=== PATIENT | male | born 1935 | race Two or more races ===

== ENCOUNTER 2017-02-28 18:49 | Inpatient (IN) | payer MEDICARE, OTHER ==
[2017-02-28] VITALS (7 sets, daily range): BP systolic 99–121; BP diastolic 13–70
[~2017-02-28] VITALS: Ht 177.8 cm; Wt 63.2 kg
--- NOTE | 2017-02-28 18:52 | NUR ---
BIBRA 89 FROM HOME C/O SOB, SPO2=84% ON RA PLACED ON NR AVP9=722% WATER SYSTEMS ENGINEER. SKIN TEAR NOTED ON RFA WATER SYSTEMS ENGINEER. SKIN DISCOLORATION NOTED ON UPPER AND LOWER EXTREMITIES. PLACED ON SIMPLE MASK UPON ARRIVAL, SPO2=95%. SKIN IS WARM AND DRY. AFEBRILE. DR MENDOZA AT BS FOR EVAL. STARTED IVHL RAC 18G.
[2017-02-28 19:08] LABS: BASOPHILS # (AUTO) 0.4 /CMM (0.0-0.2); BASOPHILS % (AUTO) 2.3 % (0.0-2.0); HEMATOCRIT 44 % (39-51); HEMOGLOBIN 13.7 g/dL (13.5-17.5); LYMPHOCYTES # (AUTO) 0.8 /CMM (0.8-4.8); LYMPHOCYTES % (AUTO) 4.2 % (20.0-44.0); MEAN CORPUSCULAR HEMOGLOBIN 27 PG (26.0-33.0); MEAN CORPUSCULAR HGB CONC 32 g/dl (31.0-36.0); MEAN CORPUSCULAR VOLUME 87 fL (80-96); MONOCYTES # (AUTO) 0.7 /CMM (0.1-1.30); MONOCYTES % (AUTO) 3.6 % (2.0-12.0); NEUTROPHILS # (AUTO) 17.3 /CMM (1.8-8.9); NEUTROPHILS % (AUTO) 89.9 % (43.0-81.0); RDW COEFFICIENT OF VARIATION 16.1 (11.5-15.0); RED BLOOD CELL COUNT(AUTO) 4.99 MIL/uL (4.5-6.0); WHITE BLOOD COUNT (AUTO) 19.2 K/uL (4.3-11.0)
[2017-02-28] MEDS ORDERED: DILTIAZEM HCL 25 MG IV ONE ×3 (19:08→20:17)
--- NOTE | 2017-02-28 19:09 | NUR ---
CALLED RT FOR ABG
[2017-02-28 19:15] LABS: INR 1.21 (0.87-1.13); PROTHROMBIN TIME 12.7 SECS (9.5-12.7)
[2017-02-28 19:18] LABS: ALANINE AMINOTRANSFERASE 159 U/L (12-78); ALBUMIN 1.9 g/dL (3.4-5.0); ALKALINE PHOSPHATASE 161 U/L (46-116); ASPARTATE AMINOTRANSFERASE 79 U/L (15-37); BILIRUBIN,DIRECT 0.3 mg/dL (0.0-0.2); BILIRUBIN,TOTAL 0.7 mg/dL (0.2-1.0); CALCIUM, SERUM 8.4 mg/dL (8.5-10.1); CARBON DIOXIDE 23 mmol/L (21-32); CHLORIDE 113 mmol/L (98-107); CREATININE 1.4 mg/dL (0.6-1.3); GLUCOSE 126 mg/dL (74-106); POTASSIUM 4.2 mmol/L (3.5-5.1); SODIUM SERUM 146 mmol/L (136-145); TOTAL PROTEIN, SERUM 6.5 g/dL (6.4-8.2); UREA NITROGEN, BLOOD 32 mg/dL (7-18)
--- NOTE | 2017-02-28 19:19 | NUR ---
MERLY SHERMAN; DAUGHTER; CELL [phone]
[2017-02-28 19:20] LABS: TROPONIN I 0.203 ng/mL (0.00-0.056)
--- NOTE | 2017-02-28 19:25 | NUR ---
RT at bed side for arterial blood gas
[2017-02-28] MEDS ORDERED: IV NS 0.9% 1,000 ML BAG IV ONE (19:30)
[2017-02-28] MEDS ORDERED: VANCOMYCIN 1 GM in IV D5W 250 ML IV ONE (19:30)
[2017-02-28] MEDS ORDERED: DILTIAZEM HCL 50 MG IV IV ONE ×4 (19:30→21:00)
[2017-02-28] MEDS ORDERED: CEFEPIME 1 GM in IV D5W 50 ML IV ONE (19:30)
[2017-02-28 19:32] LABS: ABG BASE EXCESS -2.9 mmol/L; ABG OXYGEN SATURATION 93.5 % (92.0-98.5); ABG PCO2 27.6 mmHg (35.0-45.0); ABG PH 7.465 (7.350-7.450); ABG PO2 69.6 mmHg (75.0-100.0); ABG TOTAL HEMOGLOBIN 13.9 G/dL (13.5-18.0); AaDO2 219.9 mmHg; COHb 1.2 % (0.5-1.5); MetHb 0.5 % (0.0-1.5); O2Hb 91.9 % (94.0-97.0); SITE, ABG Right Radial; VENT MODE, BG Simple Mask
[2017-02-28] MEDS ORDERED: SECONDARY IV SET 1 EA INFUS.SET MC ONE ×2 (19:34→22:09)
[2017-02-28] MEDS ORDERED: IV SET PRIMARY 1 EA INFUS.SET MC ONE (19:34)
[2017-02-28] MEDS ORDERED: IV NS 0.9% 2,000 ML ONE (19:34)
[2017-02-28] MEDS ORDERED: ASPIRIN 300 MG/SUPP.RECT RC ONE ×2 (19:34→20:00)
[2017-02-28 19:35] LABS: APPEARANCE,URINE Clear (CLEAR); BILIRUBIN,URINE Negative (NEGATIVE); BLOOD, URINE Trace-lysed Ery/uL (NEGATIVE); COLOR,URINE Yellow (YELLOW); KETONES,URINE Negative (NEGATIVE); LEUKOCYTE ESTERASE ,URINE Negative (NEGATIVE); NITRITE, URINE Negative (NEGATIVE); PH,URINE 5.5 (5.0-8.0); PROTEIN,URINE Trace mg/dl (NEGATIVE); UGLUCOSE Negative (NEGATIVE); UROBILINOGEN,URINE 0.2 EU/dL (0.2)
[2017-02-28] MEDS ORDERED: IV SET PRIMARY PUMP SET 1 EA INFUS.SET MC ONE ×5 (19:37→22:08)
[2017-02-28 19:40] LABS: LACTIC ACID 2.3 mmol/L (0.4-2.0)
--- NOTE | 2017-02-28 19:45 | NUR ---
SAMANTHA MERCEDESD, AMBER SOFIA NP [employer] BUS DRIVER
[2017-02-28 19:54] LABS: ADD URINE CULTURE NO; BACTERIA,URINE None seen /HPF (None Seen); SQUAMOUS EPITHELIAL CELL,UR Few /HPF (None Seen); WBC,URINE 0-2 /HPF (0-3)
--- NOTE | 2017-02-28 19:57 | NUR ---
PT RESTING IN ER BED, NAD NOTED, PT HR IS IN THE UPPER 120'S, MD MENDOZA NOTIFIED
--- NOTE | 2017-02-28 20:02 | NUR ---
CALLED NURSING SUP. FOR ICU BED
[2017-02-28 20:13] LABS: BAND % (MANUAL) 1 % (0.0-5.0); BASOPHILS % (MANUAL) 0 % (0.0-2.0); EOSINOPHILS % (MANUAL) 0 % (0-4); LYMPHOCYTES % (MANUAL) 2 % (16-48); MONOCYTES % (MANUAL) 3 % (0-11.0); NEUTROPHILS % (MANUAL) 94 (42-76); PLATELET ESTIMATE ADEQUATE
[2017-02-28 20:14] LABS: PLATELET COUNT (AUTO) 140 /CMM (150-450)
[2017-02-28] MEDS ORDERED: IV 1/2NS 1000 ML 1,000 ML IV PRN (20:27)
[2017-02-28] MEDS ORDERED: MAGNESIUM HYDROXIDE 30 ML UDC PO PRN (20:30)
[2017-02-28] MEDS ORDERED: ACETAMINOPHEN 325 MG TABLET PO PRN (20:30)
[2017-02-28] MEDS ORDERED: MAG HYDROX/AL HYDROX/SIMETH 30 ML UDC PO PRN (20:30)
[2017-02-28] MEDS ORDERED: Z GUARD REMEDY 2 OZ OINT TP PRN (20:30)
[2017-02-28] MEDS ORDERED: ONDANSETRON HCL/PF 4 MG/2 ML VIAL IVP PRN (20:30)
[2017-02-28] MEDS: DILTIAZEM HCL IV 125 MG in IV D5W 100 ML IV PRN ×2 (20:45→22:31)
--- NOTE | 2017-02-28 20:50 | NUR ---
STARED RAMONA LOPEZ ORDERED
[2017-02-28] MEDS ORDERED: LEVOFLOXACIN 750 MG /D5W 150ML 750 MG in PREMIX 1 EA IV SCH (21:00)
--- NOTE | 2017-02-28 21:02 | NUR ---
REPORT GIVEN TO BRAXTON MCCARTY FOR JOSH
--- NOTE | 2017-02-28 21:30 | NUR ---
ROAD CLEANER :CRITICAL LAB VALUE OF LACTIC ACID 2.6 RECEIVED . PRIMARY NURSE NOTIFIED. PT ADMITTED FOR SEPSIS AND BEING TREATED FOR SEPSIS.
--- NOTE | 2017-02-28 22:00 | NUR ---
STICK INSERTER;' ADMISSION NOTE; RECEIVED PT FROM ER AT 2130, PT IS AAO X 1, CONFUSED, ON FACE MASK 6 L SATURATING 95%, SHALLOW BREATHING WITH EXERTION.ON CARDIZEM DRIP AT 11 MG/HR, UNCONTROLLED AFIB ON MONITOR. ALL ADMISSION ASSESSMENT DONE. MULTIPLE SKIN ISSUE NOTED, PICTURE TAKEN, SEE DOCUMENTATION ON FLOW SHEET. WOUND CARE CONSULT ORDERED. PER ER NURSE PT CODE STATUS ID DNR/DNI. SPOKE WITH PT'S DAUGHTER ON PHONE WANTS TO TREAT EVERYTHING BUT NOT IN AGGRESSIVE WAY.DAUGHTER HAS ADVANCE DIRECTIVE , WILL BRING IN MORNING. IV ACCESS LAC # 20, RAC #18 RUNNING 1/ NS AT 75 ML/HR. BP STABLE. ONGOING MONITORING...
[2017-02-28] MEDS ORDERED: IV 1/2NS 1000 ML 1,000 ML IV ONE (22:08)
[2017-02-28] MEDS ORDERED: MEROPENEM 1 G VIAL IV ONE (22:09)
[2017-02-28] MEDS ORDERED: LEVOFLOXACIN 750 MG /D5W 150ML 150 ML IV ONE (22:09)
[2017-02-28] MEDS ORDERED: IV NS 0.9% 100 ML IV ONE (22:18)
[2017-02-28] MEDS: MEROPENEM 1 G in IV NS 0.9% 100 ML IV SCH (22:22)
[2017-03-01] VITALS (64 sets, daily range): BP systolic 84–114; BP diastolic 48–77
[2017-03-01] MEDS ORDERED: DILTIAZEM HCL IV 125 MG in IV D5W 100 ML IV PRN (02:00)
[2017-03-01] MEDS ORDERED: IV NS 0.9% 100 ML IV ONE (04:41)
[2017-03-01] MEDS: MEROPENEM 1 G in IV NS 0.9% 100 ML IV SCH ×2 (04:48→17:20)
--- NOTE | 2017-03-01 04:56 | NUR ---
LABORATORY SAMPLE CARRIER: PT CONTINUE ON CARDIZEM DRIP TITRATED UP TO 13 MG/HR, HEART RATE STILL 120 AFIB. ORDERS WAS CLARIFIED WITH NEGRETTE ACNP WANTS TO KEEP CONTINUE DRIP UNTIL SEEN BY CHAIR LIFT OPERATOR. COMPLETE BED BATH GIVEN. MULTIPLE SKIN ISSUE , WOUND ACRE CONSULT ORDERED.
[2017-03-01 05:02] LABS: EOSINOPHILS # (AUTO) 0.1 /CMM (0.0-0.7); EOSINOPHILS % (AUTO) 0.4 % (0.0-6.0); HEMATOCRIT 38 % (39-51); HEMOGLOBIN 11.9 g/dL (13.5-17.5); LYMPHOCYTES # (AUTO) 0.7 /CMM (0.8-4.8); LYMPHOCYTES % (AUTO) 3.8 % (20.0-44.0); MEAN CORPUSCULAR HEMOGLOBIN 28 PG (26.0-33.0); MEAN CORPUSCULAR HGB CONC 32 g/dl (31.0-36.0); MEAN CORPUSCULAR VOLUME 87 fL (80-96); MONOCYTES # (AUTO) 0.2 /CMM (0.1-1.30); MONOCYTES % (AUTO) 1.2 % (2.0-12.0); NEUTROPHILS # (AUTO) 17.8 /CMM (1.8-8.9); NEUTROPHILS % (AUTO) 94.6 % (43.0-81.0); PLATELET COUNT (AUTO) 133 /CMM (150-450); RDW COEFFICIENT OF VARIATION 17.3 (11.5-15.0); RED BLOOD CELL COUNT(AUTO) 4.35 MIL/uL (4.5-6.0); WHITE BLOOD COUNT (AUTO) 18.8 K/uL (4.3-11.0)
[2017-03-01 05:18] LABS: FREE T4 (FREE THYROXINE) 0.85 ng/dL (0.76-1.46)
[2017-03-01 05:20] LABS: CALCIUM, SERUM 7.4 mg/dL (8.5-10.1); CREATININE 1.1 mg/dL (0.6-1.3); MAGNESIUM 1.7 mg/dL (1.8-2.4); PHOSPHORUS 2.4 mg/dL (2.5-4.9); POTASSIUM 3.8 mmol/L (3.5-5.1)
[2017-03-01 05:37] LABS: ANISOCYTOSIS 1+; BAND % (MANUAL) 1 % (0.0-5.0); LYMPHOCYTES % (MANUAL) 1 % (16-48); MONOCYTES % (MANUAL) 6 % (0-11.0); NEUTROPHILS % (MANUAL) 92 (42-76); PLATELET ESTIMATE GIANT PLATELET SEEN
[2017-03-01] MEDS ORDERED: FEE PK DOSING 1 MIN EA MC ONE (07:52)
[2017-03-01] MEDS ORDERED: IV SET PRIMARY PUMP SET 1 EA INFUS.SET MC ONE ×3 (08:11→18:10)
[2017-03-01] MEDS ORDERED: SECONDARY IV SET 1 EA INFUS.SET MC ONE ×2 (08:11→08:55)
[2017-03-01] MEDS: PANTOPRAZOLE 40 MG VIAL IV SCH (08:18)
[2017-03-01] MEDS: Magnesium 1GM/D5W 100ML PREMIX 100 ML IV SCH ×2 (08:18→09:13)
[2017-03-01] MEDS ORDERED: AMIODARONE 900 MG in IV D5W 500 ML IV PRN (08:30)
[2017-03-01] MEDS ORDERED: AMIODARONE 150 MG in IV D5W 100 ML IV ONE (08:30)
--- NOTE | 2017-03-01 08:37 | NUR ---
BANQUET CHEF NOTE 0720: Received patient awake, alert to name only. No respiratory distress ntoed at this time, 93% O2 sat on 6LPM of O2 via mask. No c/o discomfort at this time. With PIVs intact. On IVF infusing as ordered and Cardizem drip @13mg, still on uncontrolled AFib at this time, 120's. SBP >90's at this time. Noted patient with rales during auscultation, noted with productive cough. Kept HOB elevated. 0815: S/E by Dr. Horowitz, still on uncontrolled Afib and SBP 90's, with order to DC Cardizem and change to Amio drip and DC IVF. Will F/U with daughter for the list of home meds.
[2017-03-01] MEDS: VANCOMYCIN 0.75 GM in IV D5W 250 ML IV SCH ×2 (08:59→20:50)
[2017-03-01 09:24] LABS: ABG BASE EXCESS -5.1 mmol/L; ABG OXYGEN SATURATION 94.2 % (92.0-98.5); ABG PCO2 31.7 mmHg (35.0-45.0); ABG PH 7.392 (7.350-7.450); ABG PO2 77.1 mmHg (75.0-100.0); ABG TOTAL HEMOGLOBIN 12.3 G/dL (13.5-18.0); AaDO2 243.7 mmHg; COHb 0.7 % (0.5-1.5); MetHb 1.3 % (0.0-1.5); O2Hb 92.3 % (94.0-97.0); SITE, ABG Right Radial; VENT MODE, BG 6L SIMPLE MASK
[2017-03-01] MEDS ORDERED: AMIODARONE 900 MG in IV D5W 482 ML IV PRN (10:00)
[2017-03-01] MEDS: IPRATROPIUM NEB FS 0.5 MG/2.5 ML AMPUL.NEB NEB SCH ×2 (12:05→19:49)
--- NOTE | 2017-03-01 12:44 | NUR ---
TOMBSTONE ERECTOR HELPER NOTE 0930: Started patient on Amio drip, still noted on uncontrolled Afib up to 120's. 1130: S/E by Dr. Cordova, made aware patient is NPO and Dr. Horowitz ordered to DC IVF, will continue POC for now. MD ordered to place NGT for now and Mckinley catheter. Patient tolerated procedures, with left NGT, clamped and Mckinley cath fr16, noted with urine with lots of sediments.Placed patient on KCI mattress. 1230: Patient on 6LPM of O2 via NC @ this time, tolerated.
[2017-03-01] MEDS ORDERED: ACET325T53 PO (13:51)
[2017-03-01] MEDS ORDERED: MUPI15CR TP (13:53)
[2017-03-01] MEDS ORDERED: [UNRECOGNIZED DRUG - CODE] TP (13:53)
[2017-03-01] MEDS ORDERED: IPRA0.2S49 NEB (14:02)
[2017-03-01] MEDS ORDERED: ASPI81TA2 PO (14:02)
[2017-03-01] MEDS ORDERED: SERT50TA12 PO (14:02)
[2017-03-01] MEDS ORDERED: LEVO112T5 PO (14:02)
[2017-03-01] MEDS ORDERED: METO50TA3 PO (14:02)
[2017-03-01] MEDS ORDERED: MENT113O MC (14:02)
[2017-03-01] MEDS ORDERED: DOXY100C2 PO (14:02)
[2017-03-01] MEDS ORDERED: PRED5TAB48 PO (14:02)
[2017-03-01] MEDS ORDERED: POTASSIUM PHOSPHATE MM 7.5 MMOL in IV D5W 100 ML IV SCH (18:00)
[2017-03-01] MEDS: FIBERSOURCE HN 1,000 ML BOTTLE GT PRN (22:12)
[2017-03-02] VITALS (34 sets, daily range): BP systolic 94–127; BP diastolic 57–87
[2017-03-02] MEDS: IPRATROPIUM NEB FS 0.5 MG/2.5 ML AMPUL.NEB NEB SCH ×4 (01:40→20:03)
[2017-03-02 04:57] LABS: BASOPHILS % (AUTO) 0.1 % (0.0-2.0); EOSINOPHILS # (AUTO) 0.2 /CMM (0.0-0.7); EOSINOPHILS % (AUTO) 1.3 % (0.0-6.0); HEMATOCRIT 38 % (39-51); HEMOGLOBIN 12.3 g/dL (13.5-17.5); LYMPHOCYTES # (AUTO) 0.7 /CMM (0.8-4.8); LYMPHOCYTES % (AUTO) 4.1 % (20.0-44.0); MEAN CORPUSCULAR HEMOGLOBIN 28 PG (26.0-33.0); MEAN CORPUSCULAR HGB CONC 32 g/dl (31.0-36.0); MEAN CORPUSCULAR VOLUME 87 fL (80-96); MONOCYTES # (AUTO) 0.5 /CMM (0.1-1.30); MONOCYTES % (AUTO) 3.1 % (2.0-12.0); NEUTROPHILS # (AUTO) 15.2 /CMM (1.8-8.9); NEUTROPHILS % (AUTO) 91.4 % (43.0-81.0); PLATELET COUNT (AUTO) 102 /CMM (150-450); WHITE BLOOD COUNT (AUTO) 16.6 K/uL (4.3-11.0)
[2017-03-02] MEDS: MEROPENEM 1 G in IV NS 0.9% 100 ML IV SCH ×2 (05:04→16:57)
[2017-03-02 05:19] LABS: ALBUMIN 1.6 g/dL (3.4-5.0); BILIRUBIN,TOTAL 0.7 mg/dL (0.2-1.0); CALCIUM, SERUM 7.4 mg/dL (8.5-10.1); CREATININE 1.1 mg/dL (0.6-1.3); MAGNESIUM 2.2 mg/dL (1.8-2.4); POTASSIUM 3.8 mmol/L (3.5-5.1); TOTAL PROTEIN, SERUM 5.4 g/dL (6.4-8.2)
[2017-03-02 05:30] LABS: TROPONIN I 1.363 ng/mL (0.00-0.056)
--- NOTE | 2017-03-02 06:00 | NUR ---
UNDERGROUND UTILITY LOCATOR - REC'D PT. LAST PM ON AMIODARONE GTT. AT 0.5MG/HR (16.6 CC) VIA CHOPRA PUMP. PT'S DAUGHTER-MERLY PHONED LAST NIGHT FOR STATUS UPDATE. GIVEN. SHE IS VERY INVOLVED IN HER CARE. PT. IS VERY CONGESTED & HAS REC'D NASAL SXING W/ARREDONDO/BLOOD TINGED SX'S EXPELLED. DOPPLER PULSES ARE THE ONLY WAY TO AUSC.PEDALS. AFEBRILE. HEART MONITOR SHOWS UNCONT. AFIB/LOW 100'S-120'S. SBP'S = 90-120'S. PT.IS ON O2/4L/NC. MULTIPLE WOUND CARE ADM. DURING BEDBATH. DOPPLER PEDAL PULSES ARE THE ONLY WAY TO ASSESS CIRCULATION. NO POST.TIB'S OR DORSAL PEDAL PULSES ARE HEARD. PULSE IS AUDIBLE AT THE TOP OF (BILAT.) FOOT. TWO PIV'S ARE NOTED. SCHAFFER CATH TO GRAVITY W/MIN.UOP FOR 12HR. SHIFT 365CC/NOC'S. HOB UP AT 30 DEGREES ALWAYS. CONT.POC.
--- NOTE | 2017-03-02 08:18 | NUR ---
WOUND CARE CONSULT PATIENT SEEN AND SKIN INTEGRTY ASSESSMENT DONE. PLEASE SEE TAWER ASSESSMENT IN PCS FOR TODAY ALONG WITH ALL RECOMMENDATIONS. WOUND CARE WILL DEFER TREATMENT TO THE BILATERAL FEET ULCERATIONS TO PODIATRY AT THIS TIME. PODIATRY HAS BEEN NOTIFIED BY PMD. PATIENT WITH CURRENT MAISHA AT 12. 1ST STEP LOW AIRLOSS MATTRESS IN PLACE FOR SKIN MANAGEMENT, RECOMMEND TURNING SCHED Q 2 HOURS PATIENT CONDITION PERMITS AND BILATERAL HEEL FLOATING. ALL TREATMENT PLANS DISCUSSED WITH MD AND MD IN AGREEMENT. ALL DISCUSSED WITH NURSING AT THE BEDSIDE. CONTINUE ALL PREVENTION MEASURES PER CURRENT PLAN OF CARE. PATIENT WITH MULTIPLE CO-MORBIDITIES AT THIS TIME. TAWER UNABLE TO PALPATE BILATERAL PEDAL PULSES AT THIS TIME AND FEET ARE COOL TO TOUCH. ARTERIAL STUDIES NOTED. Addendum: 03/02/17 at 0826 by QUENTIN STANTON WNDNU Amended: Links added.
[2017-03-02] MEDS: VANCOMYCIN 0.75 GM in IV D5W 250 ML IV SCH ×2 (09:00→20:38)
--- NOTE | 2017-03-02 09:10 | NUR ---
DEEP SUCTIONED THE PT. MODERATE AMOUNT OF PINK SPUTUM OBTAINED. PT TOLERATED THE PROCEDURE WELL AND THE PATIENT'S BREATH SOUNDS ARE MORE CLEAR.
[2017-03-02] MEDS: PANTOPRAZOLE 40 MG VIAL IV SCH (09:14)
[2017-03-02] MEDS: NEOMY SULF/BACITRAC ZN/POLY 15 GM TUBE TP SCH (09:14)
--- NOTE | 2017-03-02 10:34 | NUR ---
DR. HOFFMAN ON THE UNIT ORDERS FOR STAT CT WITH RUNOFF. PT HAS TO BE NPO FOR FOUR HOURS PER RAIDOLOGY, IS AWARE AND HE STATES KEEP HIM NPO FOR 4 HOURS AND DO THE PROCEDURE TODAY 1430, RESTART TF AFTER.
[2017-03-02] MEDS: DIGOXIN INJ 0.5 MG/2 ML AMPUL IV SCH ×3 (11:19→23:45)
[2017-03-02] MEDS: ENOXAPARIN SODIUM 40 MG/0.4 ML DISP.SYRIN SQ SCH (11:23)
--- NOTE | 2017-03-02 11:28 | NUR ---
CALLED PT'S DAUGHTER MERLY LEFT A MESSAGE TO CALL THE UNIT BACK. WILL OBTAIN CONSENT FOR CTA ABDOMINAL AORTA WITH CONTRAST. PER DR. HOFFMAN'S ORDERS. Addendum: 03/02/17 at 1533 by NISHANT BURKETT RN CONSENT OBTAINED. T.O. CONSENT VERIFIED WITH CHARGE NURSE OVER THE PHONE.
[2017-03-02] MEDS ORDERED: IOHEXOL-350 100 ML VIAL IV ONE (14:29)
[2017-03-02] MEDS ORDERED: IV NS 0.9% 250 ML IV ONE (14:29)
[2017-03-02] MEDS ORDERED: CT SWABBABLE VALVE TRANS SET 1 EA INFUS.SET MC ONE (14:30)
--- NOTE | 2017-03-02 15:34 | NUR ---
PT BACK FROM CT. SHORT OF BREATH SPO2 88% PLACED ON O2 MASK WITH SPO2 SATURATION RISING UP TO 99%. WILL TITRATE OFF PER PT TOLERATION. Addendum: 03/02/17 at 1618 by NISHANT BURKETT RN RIGHT AC 18G INFILTRATED AFTER CT WITH CONTRAST STUDY. DC AND ELEVATED WITH WARM COMPRESS. ATTEMPTED TO START IV, BUT UNSUCCESSFUL, MIDLINE ORDER OBTAINED AND IV NURSE NOTIFIED WILL BY IN BY 5PM TODAY.
--- NOTE | 2017-03-02 18:39 | NUR ---
RT IN FOR DEEP SUCTIONING OF THE PT AGAIN. MODERATE AMOUNT OF SECRETIONS OBTAINED, PT TOLERATED PROCEDURE WELL AND VOCALLY SOUNDS MORE CLEAR.
[2017-03-02] MEDS ORDERED: LEVOFLOXACIN 750 MG /D5W 150ML 750 MG in PREMIX 1 EA IV SCH (21:00)
[2017-03-03] VITALS (30 sets, daily range): BP systolic 96–149; BP diastolic 45–86
[2017-03-03] MEDS: IPRATROPIUM NEB FS 0.5 MG/2.5 ML AMPUL.NEB NEB SCH ×4 (01:27→19:43)
[2017-03-03] MEDS: MEROPENEM 1 G in IV NS 0.9% 100 ML IV SCH ×2 (04:25→16:23)
[2017-03-03 04:50] LABS: BASOPHILS % (AUTO) 0.1 % (0.0-2.0); EOSINOPHILS # (AUTO) 0.2 /CMM (0.0-0.7); EOSINOPHILS % (AUTO) 1.2 % (0.0-6.0); HEMATOCRIT 44 % (39-51); HEMOGLOBIN 13.9 g/dL (13.5-17.5); LYMPHOCYTES # (AUTO) 0.7 /CMM (0.8-4.8); LYMPHOCYTES % (AUTO) 4.1 % (20.0-44.0); MEAN CORPUSCULAR HEMOGLOBIN 28 PG (26.0-33.0); MEAN CORPUSCULAR HGB CONC 32 g/dl (31.0-36.0); MEAN CORPUSCULAR VOLUME 87 fL (80-96); MONOCYTES # (AUTO) 0.5 /CMM (0.1-1.30); MONOCYTES % (AUTO) 2.8 % (2.0-12.0); NEUTROPHILS # (AUTO) 15.2 /CMM (1.8-8.9); NEUTROPHILS % (AUTO) 91.8 % (43.0-81.0); PLATELET COUNT (AUTO) 120 /CMM (150-450); RDW COEFFICIENT OF VARIATION 17.3 (11.5-15.0); RED BLOOD CELL COUNT(AUTO) 5.03 MIL/uL (4.5-6.0); WHITE BLOOD COUNT (AUTO) 16.5 K/uL (4.3-11.0)
--- NOTE | 2017-03-03 05:00 | NUR ---
SOFTBALL COACH - REC'D PT. ON O2/5L/NC W/RALES & RHONCHI TO ALL LOBES. PT.NEEDED DEEP SXING X 2 THIS SHIFT. HEART MONITOR SHOWED UNCONT. AFIB W/SBP'S WNL. PT. HAS TF/INFUSING AT 30CC/HR-NO RESIDUALS NOTED. SCHAFFER CATH TO GRAVITY PUT OUT 450CC THIS SHIFT. BUE'S HAVE MOD.TO SEVERE ECCHYMOSES & SKIN TEARS. GANGRENOUS RT. FOOT-ALL DRSGS ARE CDI. COMP. BEDBATH ADM. AT 4AM W/ORAL,ALVARO & SKIN/WOUND CARE PROVIDED. PT'S SON IN LAW CAME TO VISIT LAST NIGHT. STATUS UPDATED GIVEN TO FAMILY. AFEBRILE. HOB UP AT ALL TIMES. DOPPLERS TO PEDAL PULSES. AUDIBLE BUT WEAK. RUE MIDLINE DL/BOTH PORTS PATENT TO FLUSH. CONT.POC.
[2017-03-03 05:37] LABS: ALBUMIN 1.7 g/dL (3.4-5.0); BILIRUBIN,TOTAL 0.7 mg/dL (0.2-1.0); CREATININE 1.2 mg/dL (0.6-1.3); MAGNESIUM 2.2 mg/dL (1.8-2.4); PHOSPHORUS 1.7 mg/dL (2.5-4.9); POTASSIUM 4.3 mmol/L (3.5-5.1); TOTAL PROTEIN, SERUM 5.9 g/dL (6.4-8.2)
[2017-03-03 05:42] LABS: CALCIUM, SERUM 7.8 mg/dL (8.5-10.1)
--- NOTE | 2017-03-03 07:10 | NUR ---
RN INITIAL NOTES RECEIVED PT AWAKE, OPENS EYES UPON VERBAL AND TACTILE STIMULI. ON 02 AT 5LOPM VIA NC. NO RESPIRATORY DISTRESS NOTED. HOB ELEVATED. NO SIGNS OF PAIN NOTED. LEFT NARE NGT, PATENT AND INTACT. TOLERATING FIBERSOURCE AT 30ML/HR. NO RESIDUAL NOTED. CARMELA MIDLINE IN PLACE. DRESSING ON RFA AND LFA INTACT. FC IN PLACE. NO HEMATURIA NOTED. BLE ELEVATED. WILL CONTINUE TO MONITOR.
[2017-03-03] MEDS ORDERED: SECONDARY IV SET 1 EA INFUS.SET MC ONE (08:16)
--- NOTE | 2017-03-03 08:30 | NUR ---
RN NOTES NOTED PT 02 SAT ON 90S. KEPT HOB ELEVATED. SUCTIONED THICK SECRETIONS, MODERATE IN AMOUNT. PLACED ON MASK AT 6LPM VIA NC. WILL MONITOR.
[2017-03-03] MEDS: Magnesium 1GM/D5W 100ML PREMIX 100 ML IV SCH ×2 (08:32→09:51)
[2017-03-03] MEDS: NEOMY SULF/BACITRAC ZN/POLY 15 GM TUBE TP SCH (08:33)
[2017-03-03] MEDS: AMIODARONE HCL 200 MG TABLET PO SCH ×2 (08:33→20:59)
[2017-03-03] MEDS: PANTOPRAZOLE 40 MG VIAL IV SCH (08:33)
--- NOTE | 2017-03-03 09:00 | NUR ---
RN NOTES SEEN AND EXAMINED BY DR. VELASQUEZ. PT ON VIA MASK AT 6LPM VIA NC. HOB ELEVATED. MD AWARE THAT PT NEEDS DEEP SUCTIONING FREQUENTLY. MD AWARE OF CODE STATUS. NO ORDER MADE. WILL CONTINUE TO MONITOR.
[2017-03-03] MEDS: VANCOMYCIN 0.75 GM in IV D5W 250 ML IV SCH (09:17)
--- NOTE | 2017-03-03 10:50 | NUR ---
RN NOTES SEEN AND EXAMINED BY DR. HOFFMAN. PT ON 02 VIA MASK AT 6LPM. HON ELEVATED. 02 SAT AT 90%. MD NOTIFIED THAT PT NEEDS FREQUENT SUCTIONING. AWARE OF LAB VALUES: WBC 16.5. AFEBRILE. ON IV ATB. NO ASE NOTED. HGB 13.9, HCT 44, PLATELET 120, SODIUM 142, POTASSIUM 4.3, BUN 18, CREA 1.2, PHOSPHORUS 1.7, MAGNESIUM 2.2, PROTEIN 5.9, ALBUMIN 1.7. MD ORDERED CBC IN AM.
[2017-03-03] MEDS: ENOXAPARIN SODIUM 40 MG/0.4 ML DISP.SYRIN SQ SCH (11:19)
--- NOTE | 2017-03-03 12:00 | NUR ---
RN NOTES PT NOTED 02 SAT AT 85%, RR 31. SLIME RT SUCTIONED THE PT. KEPT HOB ELEVATED. TITRATED 02 TO 10LPM. WILL CLOSELY MONITORED Addendum: 03/03/17 at 1217 by FRANCO MCCARTHY RN *WILL CLOSELY MONITOR
[2017-03-03] MEDS ORDERED: DIGOXIN ELIX UDC 0.25 MG/5 ML UDC GT SCH (13:00)
--- NOTE | 2017-03-03 14:30 | NUR ---
RN NOTES PT NOTED 02 SAT BELOW 90%. HOB ELEVATED. ON 02 AT 10LPM VIA MASK. PT SUCTIONED. 02 SAT STILL BELOW 90%. PT PLACED ON NON-REBREATHER AT 15LPM. DR. VELASQUEZ IN THE UNIT AWARE. WILL CONTINUE TO MONITOR.
[2017-03-03] MEDS: FIBERSOURCE HN 1,000 ML BOTTLE GT PRN (14:46)
[2017-03-03] MEDS ORDERED: IV NS 0.9% 250 ML IV ONE ×2 (16:39→23:31)
[2017-03-03] MEDS ORDERED: NEUTRA PHOS 1 POWD.PACKET GT ONE (18:00)
--- NOTE | 2017-03-03 18:39 | NUR ---
RN CLOSING NOTES KEPT PT COMFORTABLE ON NON-REBREATHER AT 15LPM/MIN. KEPT HOB ELEVATED. FREQUENT SUCTIONING DONE. KEPT 02 SAT ABOVE 90%. NGT IN PLACE, TOLERATING GTF WELL. NO RESIDUAL NOTED. IV LINE IN PLACE. FC IN PLACE. TX PROVIDED ORDERED. KEPT CLEAN AND DRY. REPOSITIONED Q2. KEPT BLE ELEVATED. KEPT COMFORTABLE. WILL ENDORSE FOR CONTINUITY OF CARE.
--- NOTE | 2017-03-03 20:00 | NUR ---
DOCKING SAW OPERATOR DF RECEIVED PT TO ROOM#255 PT INTUBATED TOLERATING CURRENT AC VENT SETTINGS. SEDATED ON DIPRIVAN @40MCG(INCREASED TO 40 MCG FOR SEDATION)RESPONSIVE TO TACTILE STIMULATION.BILATERAL SOFT WRIST RESTRAINTS IN PLACE FOR PT SAFETY PT SELF EXTUBATION RISK. PT VSS.NO DISTRESS STATUS PT STATUS STABLE(SEE ASSESSMENT FLOWSHEETS FOR INFO)PT WITH EXTENSIVE WOUND TO RIGHT FOOT COVERED WITH DRESSING C/D/I(PT FOLLOWED BY PODIATRY/WOUND CARE TEAM)WILL MONITOR FOR CHANGES. Addendum: 03/04/17 at 0509 by WILLIAN ARRIAZA RN DISREGARD ABOVE ENTRY MISTAKEN ENTRY NOT INTENDED FOR THIS PT.
--- NOTE | 2017-03-03 21:00 | NUR ---
PURCHASE PRICE ANALYST DF PT WITH GENERALIZED PAIN PT OBSERVED MOANING WITH FACIAL GRIMACING.PT WITH ELEVATED HEART RATE AFIB CONTROLLED OF 115-130BPM, PT MEDICATED WITH ROUTINE AMIODARONE PO VIA NGT.TOLERATING TUBE FEEDING NO RESIDUALS NOTED. PT REPOSITIONED FOR COMFORT. MEDICATED PT WITH 1 TAB NORCO PRN PAIN. PT WITH POOR PEDAL PULSES PALPABLE WITH DOPPLER WOUNDS NOTED TO LEFT/RIGHT TOES (SEE WOUND ASSESSMENT/PT BEING FOLLOWED PODIATRY/WOUND CARE TEAM/AWAITING VASCULAR CONSULT) PT ON NON REBREATHER MASK WITH O2 SAT OF 95-96% UNABLE TO TITRATE PT OFF NRM 02SAT DECREASES IN THE LOW 80,S) ABG DONE DURING DAYSHIFT. PT DNR/DNI CODE STATUS.
[2017-03-03] MEDS: HYDROCODONE/APAP 5/325MG 1 EACH TABLET PO PRN (21:07)
[2017-03-03] MEDS ORDERED: IV SET PRIMARY PUMP SET 1 EA INFUS.SET MC ONE (23:31)
[2017-03-04] VITALS (15 sets, daily range): BP systolic 81–125; BP diastolic 47–74
[2017-03-04] MEDS: IPRATROPIUM NEB FS 0.5 MG/2.5 ML AMPUL.NEB NEB SCH ×2 (01:05→08:09)
[2017-03-04] MEDS ORDERED: VANCOMYCIN 0.75 GM in IV D5W 250 ML IV SCH (03:00)
[2017-03-04] MEDS: FIBERSOURCE HN 1,000 ML BOTTLE GT PRN (03:55)
--- NOTE | 2017-03-04 05:01 | NUR ---
FAMILY INDEPENDENCE CASE MANAGER DF DURING AM CARE OBSERVED LACERATION TO LEFT KNEE WITH DAVID IN PLACE OPEN TO AIR. OBSERVED ABRASION/LACERATION TO RIGHT ELBOW, APPEARS PT WAS S/P FALL PRIOR TO ADMISSION.PHOTO TAKEN OF RIGHT ELBOW/WOUND RIGHT KNEE PHOTO IN CHART.DOCUMENTED ABOVE FINDINGS. WOUND CARE PER ORDERS TO RIGHT FOOT HYDROGEL/DANKINS/BACTROBAN WITH ABD PAD COVERED WITH KERLIX. VSS.NAD NOTED. Addendum: 03/04/17 at 0509 by WILLIAN ARRIAZA RN DISREGARD ABOVE ENTRY MISTAKEN ENTRY NOT INTENDED FOR THIS PT.
[2017-03-04 05:26] LABS: BASOPHILS % (AUTO) 0.1 % (0.0-2.0); EOSINOPHILS # (AUTO) 0.2 /CMM (0.0-0.7); HEMATOCRIT 39 % (39-51); HEMOGLOBIN 12.6 g/dL (13.5-17.5); LYMPHOCYTES # (AUTO) 0.7 /CMM (0.8-4.8); LYMPHOCYTES % (AUTO) 3.9 % (20.0-44.0); MEAN CORPUSCULAR HEMOGLOBIN 28 PG (26.0-33.0); MEAN CORPUSCULAR HGB CONC 32 g/dl (31.0-36.0); MEAN CORPUSCULAR VOLUME 86 fL (80-96); MONOCYTES # (AUTO) 0.4 /CMM (0.1-1.30); MONOCYTES % (AUTO) 2.2 % (2.0-12.0); NEUTROPHILS # (AUTO) 15.8 /CMM (1.8-8.9); NEUTROPHILS % (AUTO) 92.8 % (43.0-81.0); PLATELET COUNT (AUTO) 113 /CMM (150-450); RDW COEFFICIENT OF VARIATION 16.9 (11.5-15.0); RED BLOOD CELL COUNT(AUTO) 4.53 MIL/uL (4.5-6.0)
[2017-03-04 05:36] LABS: CALCIUM, SERUM 7.4 mg/dL (8.5-10.1); POTASSIUM 4.2 mmol/L (3.5-5.1)
[2017-03-04] MEDS: MEROPENEM 1 G in IV NS 0.9% 100 ML IV SCH (05:47)
--- NOTE | 2017-03-04 07:10 | NUR ---
RN INITIAL NOTES RECEIVED PT LETHARGIC. OPENS EYES UPON PAINFUL STIMULI. ON 02 AT 15LPM VIA NON-REBREATHER. HOB ELEVATED. PT CONGESTED. FREQUENT SUCTIONING NEEDED. NO SIGNS OF PAIN NOTED. LEFT NARE NGT, PATENT AND INTACT. TOLERATING FIBERSOURCE AT 30ML/HR. NO RESIDUAL NOTED. CARMELA MIDLINE IN PLACE. DRESSING ON BILATERAL FOREARM CLEAN AND DRY. FC IN PLACE. NO HEMATURIA NOTED. DRESSING ON BILATERAL FEET CLEAN AND DRY. BLE ELEVATED. WILL CONTINUE TO MONITOR.
--- NOTE | 2017-03-04 08:15 | NUR ---
RN NOTES SEEN AND EXAMINED BY DR MCNALLY. ASSESSED GANGRENOUS TOES ON RIGHT AND LEFT FOOT. PER MD, CONTINUE TX ORDERED. NO ADDITIONAL ORDER MADE.
[2017-03-04] MEDS: PANTOPRAZOLE 40 MG VIAL IV SCH (08:20)
[2017-03-04] MEDS: AMIODARONE HCL 200 MG TABLET PO SCH (08:20)
[2017-03-04] MEDS: HYDROCODONE/APAP 5/325MG 1 EACH TABLET PO PRN (08:20)
[2017-03-04] MEDS: NEOMY SULF/BACITRAC ZN/POLY 15 GM TUBE TP SCH (08:21)
[2017-03-04] MEDS ORDERED: CADEXOMER IODINE 40 GM TUBE TP SCH (09:00)
--- NOTE | 2017-03-04 09:40 | NUR ---
PT PRONOUNCED . DNR/DNI STATUS. NO RESPIRATORY EFFORT. ASYSTOLE ON MONITOR. NO PALPABLE PULSES. NO OBTAINABLE BP. PUPILS FIXED AND DILATED. DR HOFFMAN CALLED
--- NOTE | 2017-03-04 09:50 | NUR ---
RN NOTES CALLED [facility]. SABIHA RN (CHARGE NURSE) SPOKE WITH AYDEN AND PERTINENT INFORMATION GIVEN. CASE # [id number]. MERLY (DTR) NOTIFIED. # [phone].
--- NOTE | 2017-03-04 10:15 | NUR ---
TELEPHONIC D/W DAUGHTER MERLY SHERMAN [phone] REGARDING HER FATHER'S
--- NOTE | 2017-03-04 10:50 | NUR ---
RN NOTES BROUGHT TO [facility] [place] BY 1 RN AND SECURITY WITH PROPER LABELS AND ID BAND IN PLACE. NO BELONGINGS NOTED.
[2017-03-04] MEDS ORDERED: NEUTRA PHOS 1 POWD.PACKET NG ONE (15:30)
== END 2017-03-04 09:40 | disposition expired | DRG 871 ==
LOC: ER 18:50 → ICU 21:10
PROVIDERS: ADMIT Contractor; ATTEND Contractor
PROC: 05H533Z Insertion of Infusion Device into Right Subclavian Vein, Percutaneous Approach (ICD-10-PCS; principal; 2017-03-02)
DX: A41.9 Sepsis, unspecified organism (principal); I21.4 Non-ST elevation (NSTEMI) myocardial infarction; J18.9 Pneumonia, unspecified organism; G93.41 Metabolic encephalopathy; J96.01 Acute respiratory failure with hypoxia; E11.52 Type 2 diabetes mellitus with diabetic peripheral angiopathy with gangrene; E44.0 Moderate protein-calorie malnutrition; N17.9 Acute kidney failure, unspecified; E87.2 Acidosis; J90 Pleural effusion, not elsewhere classified; E87.0 Hyperosmolality and hypernatremia; M86.8X7 Other osteomyelitis, ankle and foot; L03.116 Cellulitis of left lower limb; L03.115 Cellulitis of right lower limb; D69.6 Thrombocytopenia, unspecified; E03.9 Hypothyroidism, unspecified; E83.42 Hypomagnesemia; E86.0 Dehydration; I25.10 Atherosclerotic heart disease of native coronary artery without angina pectoris; I48.91 Unspecified atrial fibrillation; I73.9 Peripheral vascular disease, unspecified; R65.20 Severe sepsis without septic shock; Z66 Do not resuscitate; Z87.891 Personal history of nicotine dependence; Z95.1 Presence of aortocoronary bypass graft; R74.0 Nonspecific elevation of levels of transaminase and lactic acid dehydrogenase [LDH]; E88.09 Other disorders of plasma-protein metabolism, not elsewhere classified; Z68.20 Body mass index [BMI] 20.0-20.9, adult; E11.621 Type 2 diabetes mellitus with foot ulcer; L97.524 Non-pressure chronic ulcer of other part of left foot with necrosis of bone; E11.69 Type 2 diabetes mellitus with other specified complication; L98.8 Other specified disorders of the skin and subcutaneous tissue; S40.022A Contusion of left upper arm, initial encounter; S40.021A Contusion of right upper arm, initial encounter; X58.XXXA Exposure to other specified factors, initial encounter; Y93.9 Activity, unspecified; Y92.009 Unspecified place in unspecified non-institutional (private) residence as the place of occurrence of the external cause; Y99.9 Unspecified external cause status; S41.102A Unspecified open wound of left upper arm, initial encounter; E11.40 Type 2 diabetes mellitus with diabetic neuropathy, unspecified; I10 Essential (primary) hypertension; S61.412A Laceration without foreign body of left hand, initial encounter
CPT/HCPCS: 31720; 36415; 36600; 71010-TC; 80048-TC; 80053-TC; 80061-TC; 80076-TC; 80202-TC; 81000-TC; 83605-TC; 83735-TC; 83880; 84100-TC; 84439-TC; 84443-TC; 84484-TC; 85025-TC; 85730-TC; 87040-TC; 87081-TC; 87086-TC; 93307-TC; 94762-TC; 94799-TC; A4216; A4606; A6402; C9113; J0282; J0692; J1160; J1650; J1956; J2185; J3370; J3475; J3490; J7030; J7050; J7060; Q9967; Z7610